=== PATIENT | female | born 1965 | race Caucasian/White ===

== ENCOUNTER 2019-08-30 10:23 | Outpatient (CLI) | payer MEDICAID, SELFPAY ==
--- NOTE | 2019-08-30 10:27 | ECG_ITS ---
Measurements Intervals [place] Rate: 59 P: 25 MD: 174 QRS: -21 QRSD: 102 T: 8 QT: 418 QTc: 417 Interpretive Statements SINUS BRADYCARDIA VOLTAGE CRITERIA FOR LVH BORDERLINE T WAVE ABNORMALITY- ANT/INF LEADS BORDERLINE ECG Electronically Signed On 08-30-2019 11:50:[address] HOGGER OPERATOR by Rene Fernandez D.O.
== END 2019-08-30 10:24 | disposition home or self-care (01) ==
PROVIDERS: PCP Internal Medicine; Visit Provider Obstetrics & Gynecology
DX: I10 Essential (primary) hypertension (principal); R00.1 Bradycardia, unspecified
CPT/HCPCS: 93005

== ENCOUNTER 2019-11-01 10:11 | Outpatient (CLI) | payer MEDICAID, SELFPAY ==
--- NOTE | ~2019-11-01 | CT_ITS ---
EXAMINATION: CT chest abdomen pelvis w con EXAM DATE: 11/01/2019 10:50 INDICATION: Papillary serous endometrial adenocarcinoma. TECHNIQUE: Spiral CT of the chest, abdomen and pelvis was performed following intravenous injection o f 100 mL Omnipaque 350. Axial, coronal and sagittal images were reviewed. Coronal maximum intensity pixel images of chest reviewed. The dose-length product (DLP) for this examination was 1548.31 mGy- cm. The exposure was tailored according to patient size (auto mA exposure control), and iterative re construction (ASIR) was used as additional dose reduction technique. There is no prior study for com sylvia. FINDINGS: CHEST: There is a 5 mm right middle lobe nodule without spiculations, could be granuloma or metastat ic lesion. The lungs are otherwise clear. There are no pleural or pericardial effusions. Tracheob ronchial tree is patent. There is no mediastinal, hilar or axillary lymphadenopathy. There is no pneumothorax. Heart normal in size. There is mild coronary arterial calcification, arterial scler osis. ABDOMEN PELVIS: There is heterogeneous endometrium which is contiguous to right adnexal heterogeneous ly enhancing mass consistent with malignancy. Heterogeneous right adnexal region measures up to about a centimeters in diameter. There are scattered small peritoneal nodules of soft tissue likely metast atic, largest adjacent to the cecum measuring 1.4 cm. There is bilateral pelvic, and retroperitoneal lymphadenopathy with a larger retroperitoneal lymph node or nodes measuring 3.8 x 2.1 cm. Largest ri ght sided pelvic lymph node measures 2.6 x 2.2 cm. There is moderate right-sided hydroureteronephrosi s, ureter probably being compressed or invaded by metastatic disease at the pelvic inlet. The liver, spleen, adrenal glands and pancreas are unremarkable. Gallbladder not identified, patient likely has had cholecystectomy. The bladder is unremarkable. There is mild scattered arterioscler otic disease. The appendix is normal. The stomach and small bowel are unremarkable. There is expe cted amount of colonic stool. No free intraperitoneal gas. There are no osteoblastic or osteolyti c lesions identified. IMPRESSION: 1. Right adnexal, endometrial heterogeneous malignancy. 2. Pelvic and matted retroperitoneal lymphadenopathy, causing mass effect or invading right mid uret er with associated moderate right-sided hydronephrosis. 3. Peritoneal carcinomatosis. 4. Right middle lobe nodule, possible metastatic disease. Reviewed, dictated and finalized at location [facility]. IMPRESSION: 1. Right adnexal, endometrial heterogeneous malignancy. 2. Pelvic and matted retroperitoneal lymphadenopathy, causing mass effect or i nvading right mid ureter with associated moderate right-sided hydronephrosis. 3. Peritoneal carcinomatosis. 4. Right middle lobe nodule, possible metastatic disease.
[2019-11-01 10:43] LABS: Estimated Glomerular Filt Rate 51
== END 2019-11-01 10:12 | disposition home or self-care (01) ==
LOC: ANHIMG 10:22
PROVIDERS: PCP Internal Medicine
DX: C54.1 Malignant neoplasm of endometrium (principal); R91.8 Other nonspecific abnormal finding of lung field
CPT/HCPCS: 36415; 71260; 74177; Q9967

== ENCOUNTER 2019-11-30 13:12 | Outpatient (CLI) | payer MEDICAID, SELFPAY ==
[2019-11-30 15:06] LABS: Basophils Percent Auto 0.6 % (0.2-1.2); Eosinophils Percent Auto 0.6 % (0-4.4); Hematocrit 38.9 % (37.0-47.0); Hemoglobin 12.7 g/dL (12.0-15.0); Immature Granulocyte Absolute 0.03 K/mm3 (0.00-0.031); Immature Granulocyte Percent A 0.4 % (0-0.5); Lymphocytes Absolute Auto 2.42 K/mm3 (0.9-3.2); Lymphocytes Percent Auto 34.3 % (18.3-44.2); Mean Corpuscular HGB Conc 32.6 g/dl (32-36); Mean Corpuscular Volume 85.9 fl (80-100); Mean Platelet Volume 9.2 fl (7.4-10.4); Monocytes Absolute Auto 0.9 K/mm3 (0.1-0.6); Monocytes Percent Auto 12.1 % (2.6-8.5); Neutrophils Absolute Auto 3.7 K/mm3 (1.3-6.7); Platelet Count Result 197 k/mm3 (150-375); Red Blood Count 4.53 M/mm3 (4.2-5.4); Red Cell Distribution Width 14.5 % (11.5-14.5); White Blood Count 7.1 K/mm3 (4.5-10.0)
[2019-11-30 15:43] LABS: Alanine Aminotransferase 22 U/L (4-35); Alkaline Phosphatase 80 U/L (38-126); Aspartate Amino Transferase 27 U/L (14-36); Bilirubin,Total 0.2 mg/dL (0.2-1.3); Blood Urea Nitrogen 11 mg/dL (7-17); Calcium 8.7 mg/dL (8.4-10.2); Carbon Dioxide 29 mmol/L (22-30); Chloride 104 mmol/L (98-107); Estimated Glomerular Filt Rate > 60; Glucose 82 mg/dL (65-105); Magnesium 1.9 mg/dL (1.6-2.3); Potassium 3.9 mmol/L (3.4-5.0); Sodium 138 mmol/L (137-145)
[2019-12-04 02:04] LABS: CA-125 62 U/mL (<35)
== END 2019-11-30 13:13 | disposition home or self-care (01) ==
PROVIDERS: PCP Internal Medicine
DX: C54.1 Malignant neoplasm of endometrium (principal)
CPT/HCPCS: 36415; 80053; 83735; 85025; 86304

== ENCOUNTER 2019-12-18 16:28 | Emergency (ER) | payer MEDICAID, SELFPAY ==
--- NOTE | ~2019-12-18 | CT_ITS ---
EXAMINATION: CT abdomen pelvis wo con EXAM DATE: 12/18/2019 17:33 INDICATION: Burning, increased frequency. Dysuria. Endometrial adenocarcinoma, peritoneal carcinomato sis, retroperitoneal and pelvic lymphadenopathy. TECHNIQUE: Spiral CT of the abdomen and pelvis was performed without contrast. Axial, coronal and s agittal images were reviewed. The dose-length product (DLP) for this examination was 1308.20 mGy-cm. The exposure was tailored according to patient size (auto mA exposure control), and iterative recon struction (ASIR) was used as additional dose reduction technique. Comparison is made to prior examina tion from 11/01/2019. FINDINGS: The liver, spleen, adrenal glands and pancreas are unremarkable. Gallbladder is unremarkab le. No biliary obstruction. There is a right-sided ureteral stent, proximal loop in an inferior jasmin yx. There is mild right-sided hydroureteronephrosis, with improvement compared to previous study. In terval decrease in size of the previously seen right adnexal mass from 7.7 x 5.5 cm to 5.6 x 4.3 cm t to. The bladder is unremarkable. Previously seen right retroperitoneal lymph node measures 2.2 x 0.9 cm (previously 3.9 x 2.1 cm). Also improvement in the other retroperitoneal and pelvic metastatic lymph nodes. Small nodules of peritoneal carcinomatosis less well-visualized today. There is mild sc attered arteriosclerotic disease. The appendix is normal. There is small sliding gastroesophageal hiatal hernia. There is expected am ount of colonic stool. No free intraperitoneal gas. The heart is normal in size. There are no pe ricardial or pleural effusions. Right middle lobe 5 mm nodule is unchanged. There are no osteoblast ic or osteolytic lesions identified. IMPRESSION: 1. Decrease in size of right adnexal malignancy, pelvic and retroperitoneal lymph nodes, and periton eal carcinomatosis likely response to treatment. 2. Improvement in now mild right-sided hydronephrosis with ureteral stent in position. 3. Stable right middle lobe 5 mm nodule. Reviewed, dictated and finalized at location [facility]. IMPRESSION: 1. Decrease in size of right adnexal malignancy, pelvic and retroperitoneal ly mph nodes, and peritoneal carcinomatosis likely response to treatment. 2. Improvement in now mild right-sided hydronephrosis with ureteral stent in p osition. 3. Stable right middle lobe 5 mm nodule.
[2019-12-18 16:31] VITALS: BP 144/97; PULSE 112; RESP 16; TEMP 36.4; O2SAT 97
[2019-12-18 16:49] LABS: Add Urine Microscopic? YES; Appearance Urine Cloudy (Clear); Bacteria Urine 1+ /hpf; Bilirubin Urine Negative (Negative); Blood Urine 2+ (Negative); Color Urine Yellow (Yellow); Glucose Urine UA Negative (Negative); Ketones Urine Negative (Negative); Leukocyte Esterase Ur 3+ LEU/UL (Negative); Mucus Urine Few /lpf; Nitrate Urine Negative (Negative); Protein Urine 2+ mg/dL (Negative); RBC Urine 21-50 /hpf (0-2); Specific Grav Ur 1.013 (1.001-1.035); Squamous Epithelial Cell Urine Many /hpf (Few); Urobilinogen Urine Negative mg/dL (<2.0); WBC Urine >75 /hpf
[2019-12-18 17:03] LABS: Hematocrit 30.7 % (37.0-47.0); Hemoglobin 10.2 g/dL (12.0-15.0); Mean Corpuscular HGB Conc 33.2 g/dl (32-36); Mean Corpuscular Hemoglobin 28.4 pg (26-34); Mean Corpuscular Volume 85.5 fl (80-100); Mean Platelet Volume 9.8 fl (7.4-10.4); Platelet Count Result 82 k/mm3 (150-375); Red Blood Count 3.59 M/mm3 (4.2-5.4); Red Cell Distribution Width 13.5 % (11.5-14.5)
--- NOTE | 2019-12-18 17:07 | ED.ABDPAIN ---
HPI - Abdominal Pain General Chief Complaint: Urogenital-Female Stated Complaint: BURNING WITH URINATION Time Seen by Provider: 12/18/19 16:42 Source: patient Mode of arrival: ambulatory Limitations: no limitations History of Present Illness HPI narrative: Patient is a 54-year-old female who presents to emergency department for evaluation of burning with urination and frequency over the last week that is gradually worsened patient recently had a stent placed in the right ureter after the ureter had become obstructed secondary to lymphadenopathy due to her cancer that is she is receiving chemotherapy for. Patient specialists are all at [place]. Patient denies fever chills nausea vomiting hematuria or dysuria. Patient has not been seen for this complaint nor she taken anything for her symptoms Related Data Home Medications Medication Instructions Recorded Confirmed losartan 50 mg PO DAILY 08/28/19 08/28/19 metoprolol tartrate 37 mg DAILY 08/28/19 08/28/19 sertraline 50 mg PO HS 08/28/19 08/28/19 Allergies Allergy/AdvReac Type Severity Reaction Status Date / Time No Known Allergies Allergy Unverified 12/18/19 16:40 Review of Systems Review of Systems: All systems reviewed & are unremarkable except as noted in HPI and below PMFSH Past Medical History Medical History (Updated 12/18/19 @ 18:38 by Tian Meneses PA-C) Obesity Surgical History Surgical History H/O section History of cholecystectomy S/P ureteral stent placement Social History Social History Years smoked: 10 Smoking status: Former smoker Gender identity (if verbalized by the patient): Female Exam Narrative: Exam Narrative: GENERAL: Well-appearing, well-nourished, and in no acute distress. HEAD: Normocephalic, atraumatic. EYES: PERRLA and EOMI. ENT: Nares clear, no rhinorrhea or epistaxis. Mucous membranes moist. CHEST: Clear to auscultation. No respiratory distress. No wheezes rales or rhonchi HEART: Regular rate and rhythm. No murmur heard. Normal peripheral pulses. ABDOMEN: Soft, nontender, nondistended EXTREMITIES: Normal range of motion. No edema. SKIN: Warm, dry, no rash. NEURO: No focal deficits. Alert and oriented x3. PSYCH: Normal mood and affect. Course Consultations Consultation #1: Discussed case with urology services [facility] recommends that the patient can follow-up on an outpatient basis and recommends that Macrobid is an appropriate antibiotic Date: 12/18/19 Time: 18:35 Vital Signs Vital signs: Vital Signs Temperature 97.5 F L 12/18/19 16:31 Pulse Rate 112 H 12/18/19 16:31 Respiratory Rate 16 12/18/19 16:31 Blood Pressure 144/97 H 12/18/19 16:31 Pulse Oximetry 97 12/18/19 16:31 Temperature 97.5 F L 12/18/19 16:31 Pulse Rate 112 H 12/18/19 16:31 Respiratory Rate 16 12/18/19 16:31 Blood Pressure 144/97 H 12/18/19 16:31 Pulse Oximetry 97 12/18/19 16:31 MDM - Abdominal Pain MDM Narrative Medical decision making narrative: Patient in the room at this time afebrile nontoxic without emesis with urinary tract infection was given fluids and a dose of IV Rocephin discussion was made with her surgeon patient will be sent home on antibiotics with strict instructions to return and plans to follow with her primary care and oncologist. Lab Data Result diagrams: 12/18/19 16:57 12/18/19 16:57 Labs: Lab Results 12/18/19 12/18/19 12/18/19 Range/Units 16:36 16:57 16:57 WBC Pending RBC Pending Hgb Pending Hct Pending MCV Pending MCH Pending MCHC Pending RDW Pending Plt Count Pending MPV Pending Immature Gran % (Auto) Pending Neut % (Auto) Pending Lymph % (Auto) Pending [place] % (Auto) Pending Eos % (Auto) Pending Baso % (Auto) Pending Lymph # (Auto)
[2019-12-18 17:16] LABS: Blood Urea Nitrogen 8 mg/dL (7-17); Calcium 8.8 mg/dL (8.4-10.2); Carbon Dioxide 30 mmol/L (22-30); Chloride 102 mmol/L (98-107); Estimated CRCL calculation 81 ml/min; Estimated Glomerular Filt Rate > 60; Glucose 157 mg/dL (65-105); Potassium 3.5 mmol/L (3.4-5.0); Sodium 138 mmol/L (137-145)
[2019-12-18 17:28] LABS: White Blood Count 1.9 K/mm3 (4.5-10.0)
[2019-12-18 17:34] LABS: Band Neutrophils Percent 4 % (0-6); Lymphocytes Absolute Manual 1.29 K/mm3 (1.1-4.5); Monocytes Absolute Manual 0.26 K/mm3 (0.1-0.90); Monocytes Percent Manual 14 % (3-9); Neutrophils Absolute Manual 0.34 K/mm3 (1.7-7.2); Neutrophils Percent Manual 14 % (46-73); Platelet Estimate Decreased (Adequate); Total Cells Counted 50
[2019-12-18 17:35] LABS: Anisocytosis 1+ (NORMAL); Hypochromasia 1+ (NORMAL)
[2019-12-18] MEDS: SODIUM CHLORIDE 0.9% IV 1,000 ML 999 ML IV CONT (17:47)
[2019-12-18] MEDS: PHENAZOPYRIDINE HCL 100 MG TABLET (18:00)
[2019-12-18 18:36] LABS: Lactic Acid Reflex 1.2 mmol/L (0.7-2.1)
[2019-12-18 19:18] VITALS: BP 147/96; PULSE 90; RESP 18; O2SAT 97
== END 2019-12-18 19:04 | disposition home or self-care (01) ==
PROVIDERS: Emergency Medicine Emergency Medical Services; Emergency Provider Emergency Medicine; PCP Internal Medicine
DX: N39.0 Urinary tract infection, site not specified (principal)
CPT/HCPCS: 36415; 74176; 80048; 81001; 83605; 85025; 87040; 87077; 87086; 87088; 87186; 96361; 96365; 96375; 99284; A9270; J0696; J7030

== ENCOUNTER 2020-08-07 08:07 | Outpatient (CLI) | payer MEDICARE, MEDICAID, SELFPAY ==
--- NOTE | ~2020-08-07 | MM_ITS ---
EXAMINATION: MM screening alyssa BI w alexey HISTORY: Screening TECHNIQUE: Craniocaudal and mediolateral oblique 3-D tomosynthesis images were obtained and synthetic 2-D images were generated. CAD analysis was submitted and interpreted. COMPARISON: No prior mammogram is available for comparison at this institution. BREAST PARENCHYMAL COMPOSITION: There are scattered areas of fibroglandular density. FINDINGS: There is no evidence of suspicious mass, calcification, or architectural distortion to sugg est malignancy in either breast. There has been no suspicious interval change. IMPRESSION: 1. No mammographic evidence of malignancy. 2. Recommend routine screening mammography in one year. BI-RADS Category 1: Negative Reviewed, dictated and finalized at location [facility]. ING CLERK
== END 2020-08-07 08:08 | disposition home or self-care (01) ==
LOC: ANHIMG 08:14
PROVIDERS: PCP Internal Medicine; Visit Provider Internal Medicine
DX: Z12.31 Encounter for screening mammogram for malignant neoplasm of breast (principal)
CPT/HCPCS: 77063; 77067

== ENCOUNTER 2022-05-24 13:36 | Emergency (ER) | payer OTHER, SELFPAY ==
--- NOTE | ~2022-05-24 | CT_ITS ---
EXAMINATION: CT brain wo con DATE: 05/24/2022 14:09 INDICATION: Right arm tingling. History of metastatic ovarian cancer. TECHNIQUE: Computed tomography (CT) of the head was performed without intravenous contrast. The mA wa s adjusted according to patient size. Iterative reconstruction technique was employed. Exam dose: 60 5.33 mGy-cm total exam DLP. COMPARISON: None FINDINGS: Bilateral carotid siphon internal carotid artery calcifications. There is nonspecific dimin ished attenuation of the cerebral white matter, likely due to chronic small vessel ischemic change. N o intracranial mass lesion or hemorrhage or cerebrovascular accident is detected. No midline shift or mass effect. No subdural or epidural hematoma. No fracture or bone destruction of the cranial vault. The mastoid air cells and included paranasal si nuses are normally developed and aerated. IMPRESSION: Cerebral atherosclerosis and chronic small vessel ischemic changes of the cerebral white matter No acute intracranial finding Reviewed, dictated and finalized at [facility]. Reviewed, dictated and finalized at location [facility].
--- NOTE | ~2022-05-24 | XR_ITS ---
EXAMINATION: XR chest 1V Exam Date/Time: 05/24/2022 14:04 CDT HISTORY: doesnt feel right,intermittent rightarm tingling, ovarian ca Comparison: 07/06/2015. RESULT: Lines, tubes, and devices: Right chest port, terminating in the SVC. Lungs and pleura: Slightly low lung volumes with crowding. Bibasilar atelectasis. Cardiomediastinal silhouette: Stable. Other: No acute osseous or upper abdominal finding. IMPRESSION: No acute cardiopulmonary process. Reviewed, dictated and finalized at location [facility].
[2022-05-24 13:43] VITALS: BP 146/83; PULSE 81; RESP 18; TEMP 36.4; O2SAT 100
--- NOTE | 2022-05-24 13:49 | ECG_ITS ---
Measurements Intervals [place] Rate: 74 P: 9 PA: 172 QRS: -30 QRSD: 82 T: 2 QT: 378 QTc: 420 Interpretive Statements SINUS RHYTHM LOW QRS VOLTAGE IN PRECORDIAL LEADS VOLTAGE CRITERIA FOR LVH BASELINE ARTIFACT- II, AVR, V5 BORDERLINE ECG COMPARED TO ECG 08/30/2019 10:58:18 HEART RATE HAS INCREASED Electronically Signed On 05-25-2022 6:33:53 CDT by Rene Fernandez D.O.
[2022-05-24 14:07] LABS: Basophils Percent Auto 0.8 % (0.2-1.2); Eosinophils Absolute Auto 0.1 K/mm3 (0-0.3); Eosinophils Percent Auto 4.2 % (0-4.4); Hematocrit 28.6 % (37.0-47.0); Hemoglobin 9.2 g/dL (12.0-15.0); Immature Granulocyte Absolute 0.01 K/mm3 (0.00-0.031); Immature Granulocyte Percent A 0.4 % (0-0.5); Lymphocytes Absolute Auto 1.07 K/mm3 (0.9-3.2); Mean Corpuscular HGB Conc 32.2 g/dl (32-36); Mean Corpuscular Hemoglobin 33.1 pg (26-34); Mean Corpuscular Volume 102.9 fl (80-100); Mean Platelet Volume 10.3 fl (7.4-10.4); Monocytes Absolute Auto 0.2 K/mm3 (0.1-0.6); Monocytes Percent Auto 9.2 % (2.6-8.5); Neutrophils Absolute Auto 1.2 K/mm3 (1.3-6.7); Neutrophils Percent Auto 44.4 % (45.5-73.1); Platelet Count Result 153 k/mm3 (150-375); Red Blood Count 2.78 M/mm3 (4.2-5.4); Red Cell Distribution Width 23.3 % (11.5-14.5); White Blood Count 2.6 K/mm3 (4.5-10.0)
[2022-05-24 14:25] LABS: INR 1.1; Prothrombin Time 13.6 Seconds (11.1-14.7)
[2022-05-24 14:26] LABS: Partial Thromboplastin Time 30.7 SECONDS (22.3-36.8)
[2022-05-24 14:29] LABS: Alanine Aminotransferase 26 U/L (6-35); Albumin Level 4.6 g/dL (3.5-5.1); Alkaline Phosphatase 85 U/L (38-126); Anion Gap 9 mmol/L (8-16); Aspartate Amino Transferase 34 U/L (14-36); Bilirubin,Total 0.6 mg/dL (0.2-1.3); Blood Urea Nitrogen 12 mg/dL (7-17); Calcium 8.8 mg/dL (8.4-10.2); Carbon Dioxide 28 mmol/L (22-30); Chloride 103 mmol/L (98-107); Estimated CRCL calculation 73 ml/min; Estimated Glomerular Filt Rate > 60; Glucose 133 mg/dL (65-110); Potassium 3.4 mmol/L (3.4-5.0); Sodium 140 mmol/L (137-145)
[2022-05-24 14:41] LABS: Troponin I < 0.012 ng/mL (0.000-0.034)
[2022-05-24 14:57] LABS: Platelet Estimate Adequate (Adequate)
[2022-05-24 14:58] LABS: Anisocytosis 2+ (NORMAL); Schistocytes None Seen (NORMAL)
[2022-05-24 14:59] LABS: Hypochromasia 1+ (NORMAL)
--- NOTE | 2022-05-24 17:24 | ED.NEUROSD ---
HPI - Neuro Symptoms/Deficit General Chief Complaint: Neuro Symptoms/Deficit Stated Complaint: WEAKNESS Time Seen by Provider: 05/24/22 17:16 Source: patient Mode of arrival: ambulatory Limitations: no limitations History of Present Illness HPI Narrative: This is a 57 year old female that presents to the ER for paresthesias noted in the right arm. Ongoing today. No recent injury or trauma. Denies any neck pain or shoulder pain. Does report she recently finished chemotherapy for ovarian cancer. She does know that one of her chemotherapy agents is known to cause neuropathy. She had been experiencing some tingling in the right leg as well. And sometimes in her hands and fingers. She has no focal numbness or weakness. Denies headache, vomiting, chest pain, or shortness of breath. Related Data Home Medications Medication Instructions Recorded Confirmed losartan 50 mg tablet mg 05/24/22 metoprolol succinate 50 mg mg PO 05/24/22 tablet,extended release 24 hr Allergies Allergy/AdvReac Type Severity Reaction Status Date / Time No Known Allergies Allergy Verified 05/24/22 17:44 Review of Systems Review of Systems: CONSTITUTIONAL: Denies fever CARDIOVASCULAR: Denies chest pain RESPIRATORY: Denies dyspnea. GASTROINTESTINAL: Denies vomiting MUSCULOSKELETAL: Denies back pain, joint pain, or myalgia. NEUROLOGIC: Denies headache, numbness, or weakness. PSYCHIATRIC: Reports anxiety and depression. All systems reviewed & are unremarkable except as noted in HPI and below PMFSH Past Medical History Medical History (Updated 05/24/22 @ 20:11 by Ignacia Chávez PA-C) Depression History of ovarian cancer History of rheumatoid arthritis Hypercholesterolemia Hypertension Obesity Surgical History Surgical History H/O section History of cholecystectomy S/P ureteral stent placement Social History Social History Years smoked: 10 Smoking status: Former smoker Gender identity (if verbalized by the patient): Female Exam Narrative: GENERAL: Well-appearing, well-nourished, and in no acute distress. HEAD: Normocephalic, atraumatic. EYES: PERRLA and EOMI. ENT: Nares clear, no rhinorrhea or epistaxis. Mucous membranes moist. Oropharynx without tonsillar hypertrophy exudate or other lesions. Bilateral TMs pearly santos non-bulging NECK: Supple. No adenopathy or masses. CHEST: Clear to auscultation. No respiratory distress. No wheezes rales or rhonchi HEART: Regular rate and rhythm. No murmur heard. Normal peripheral pulses. ABDOMEN: Soft, nontender, nondistended, normal active bowel sounds. EXTREMITIES: Normal range of motion. No edema. Strength equal in bilateral upper and lower extremities (5/5) SKIN: Warm, dry, no rash. NEURO: No focal deficits. Alert and oriented x3. Cranial nerves II through XII grossly intact PSYCH: Normal mood and affect Course Consultations Consultation #1: Spoke with patient's primary provider on-call about work-up. Date: 05/24/22 Vital Signs Vital signs: Vital Signs Temperature 97.6 F 05/24/22 13:43 Pulse Rate 81 05/24/22 13:43 Respiratory Rate 18 05/24/22 13:43 Blood Pressure 146/83 H 05/24/22 13:43 Pulse Oximetry 100 05/24/22 13:43 Oxygen Delivery Room Air 05/24/22 13:43 Temperature 97.6 F 05/24/22 13:43 Pulse Rate 80 05/24/22 20:45 Respiratory Rate 18 05/24/22 20:45 Blood Pressure 115/72 05/24/22 20:45 Pulse Oximetry 96 05/24/22 20:45 Oxygen Delivery Room Air 05/24/22 13:43 MDM - Neuro Symptoms/Deficit MDM Narrative Medical decision making narrative: Patient presents to the emergency department for some paresthesias noted today. Patient with history of breast cancer. She recently finished chemotherapy. She does note that she is on a agent that can cause peripheral neuropathy. She does have some tr
[2022-05-24 17:30] VITALS: BP 120/83; PULSE 73; RESP 16; O2SAT 100
[2022-05-24 18:00] VITALS: BP 117/71; PULSE 72; RESP 16; O2SAT 100
[2022-05-24 18:03] LABS: Appearance Urine Clear (Clear); Bilirubin Urine Negative (Negative); Blood Urine Negative (Negative); Color Urine Yellow (Yellow); Glucose Urine UA Negative (Negative); Ketones Urine Negative (Negative); Leukocyte Esterase Ur Trace LEU/UL (Negative); Nitrate Urine Negative (Negative); Protein Urine Negative (Negative); Specific Grav Ur 1.015 (1.001-1.035); Urobilinogen Urine 0.2 mg/dL (<2.0)
[2022-05-24 18:05] LABS: Mucus Urine Rare /lpf; RBC Urine 0-2 /hpf (0-2); Squamous Epithelial Cell Urine Moderate /hpf (Few); WBC Urine 0-3 /hpf
[2022-05-24 18:08] LABS: Add Urine Microscopic? NO
[2022-05-24 18:31] VITALS: BP 104/79; PULSE 71; RESP 15; O2SAT 100
[2022-05-24 18:35] LABS: Influenza A QL RT-PCR Negative (Negative); Influenza B QL RT-PCR Negative (Negative); SARS-CoV-2 RNA PCR Negative
[2022-05-24 20:45] VITALS: BP 115/72; PULSE 80; RESP 18; O2SAT 96
== END 2022-05-24 20:46 | disposition home or self-care (01) ==
PROVIDERS: Emergency Medicine; Emergency Provider Physician Assistant; PCP Internal Medicine
DX: R20.2 Paresthesia of skin (principal); Z20.822 Contact with and (suspected) exposure to COVID-19; C56.9 Malignant neoplasm of unspecified ovary; E78.00 Pure hypercholesterolemia, unspecified; I10 Essential (primary) hypertension; M06.9 Rheumatoid arthritis, unspecified; E66.9 Obesity, unspecified; Z68.28 Body mass index [BMI] 28.0-28.9, adult; Z79.899 Other long term (current) drug therapy; I67.2 Cerebral atherosclerosis; R94.31 Abnormal electrocardiogram [ECG] [EKG]; Z87.891 Personal history of nicotine dependence
CPT/HCPCS: 36415; 70450; 71045; 80053; 81003; 82607; 82746; 84443; 84484; 85025; 85610; 85730; 87502; 93005; 99284; U0003; U0005